=== PATIENT | male | born 1970 | race Caucasian/White ===

== ENCOUNTER 2022-10-23 18:13 | Emergency (ER) | payer OTHER ==
[~2022-10-23] VITALS: Ht 177.8 cm; Wt 99.8 kg
[2022-10-23] MEDS ORDERED: ALBUTEROL SULFATE 2.5 MG/3 ML NEBU NEB ONE (18:45)
[2022-10-23] MEDS ORDERED: OXYCODONE/APAP 5-325 MG TABLET PO ONE (18:45)
[2022-10-23] MEDS ORDERED: IPRATROPIUM BROMIDE 0.5 MG/2.5 ML NEBU NEB ONE (18:45)
[2022-10-23] MEDS ORDERED: OXYCODONE/APAP 5-325 MG TABLET ONE (18:59)
[2022-10-23] MEDS ORDERED: ALBUTEROL SULFATE 2.5 MG/3 ML NEBU ONE (19:01)
[2022-10-23] MEDS ORDERED: IPRATROPIUM BROMIDE 0.5 MG/2.5 ML NEBU ONE (19:01)
[2022-10-23 19:07] LABS: HEMATOCRIT 40.9 % (36.7-47.1); MEAN CORPUSCULAR HEMOGLOBIN 26.9 uug (23.8-33.4); PLATELET COUNT (AUTO) 328 K/uL (152-348)
--- NOTE | 2022-10-23 19:23 | NUR ---
1) EKG in progress and awiat review by MD 2) covid test swab and influenza taken and await results 3) Breathing treatment administered. 4) Percocet administered as prescribed and await effect 5) Oxygen sats as per regime. 6) Vitals: BP 145/80, P92, R20, and Sat 97% 7) Patient clinically stable and conversing with staff, sharing jokes in between, no sign of distress observed.
--- NOTE | 2022-10-23 19:30 | NUR ---
Recieved report from Damon JENKINS.
[2022-10-23 19:45] LABS: CREATININE 1.4 mg/dL (0.6-1.3); POTASSIUM 4.2 mmol/L (3.5-5.1)
--- NOTE | 2022-10-23 21:15 | NUR ---
Patient is resting comfortably in room.
[2022-10-23] MEDS ORDERED: CEFTRIAXONE 1 G in IV DEXTROSE 5% 50 ML IV ONE (22:00)
[2022-10-23] MEDS ORDERED: AZITHROMYCIN 250 MG TABLET PO ONE (22:00)
[2022-10-23] MEDS ORDERED: CEFTRIAXONE /D5W 50ML IVPB **ER PYXIS IV ONE (23:09)
[2022-10-23] MEDS ORDERED: AZITHROMYCIN 250 MG TABLET ONE (23:09)
[2022-10-23] MEDS ORDERED: IV NORMAL SALINE 250 ML IV ONE (23:22)
[2022-10-23] MEDS ORDERED: SWABABLE VALVE TRANSFER SET EA MC ONE (23:22)
[2022-10-23] MEDS ORDERED: IOHEXOL 350 100 ML INFUS..BTL ONE (23:22)
[2022-10-24] MEDS ORDERED: ALBU6.7H9 INH (00:12)
[2022-10-24] MEDS ORDERED: HYDR-3980 PO (00:12)
[2022-10-24] MEDS ORDERED: CEFU500T66 PO (00:12)
[2022-10-24] MEDS ORDERED: AZIT250T13 PO (00:12)
--- NOTE | 2022-10-24 00:28 | NUR ---
Patient discharged to home in stable condition. Written and verbal after care instructions given. Patient verbalizes understanding of instructions. Stressed follow up or return to ER for worsening s/s. Patient walked out with a steady gait.
[2022-10-24 01:02] VITALS: BP 136/89
== END 2022-10-24 00:33 | disposition home or self-care (01) ==
LOC: ER 18:16
DX: J20.9 Acute bronchitis, unspecified (principal); Z20.822 Contact with and (suspected) exposure to COVID-19; R94.31 Abnormal electrocardiogram [ECG] [EKG]; R07.89 Other chest pain; R51.9 Headache, unspecified; R79.1 Abnormal coagulation profile; R91.8 Other nonspecific abnormal finding of lung field
CPT/HCPCS: 99285; 96365; 71275; 71045; 87426; 87804 ×2; 80048; 83880; 85025; 85379; 36415; 93005; 94640; J0696; Q9967; A4663; J3590; Q0144

== ENCOUNTER 2023-01-15 23:22 | Emergency (ER) | payer MEDICAID, OTHER ==
[~2023-01-15] VITALS: Ht 177.8 cm; Wt 99.8 kg
[~2023-01-15 23:22] MED LIST: ALBU6.7H9 INH; AZIT250T13 PO; CEFU500T66 PO; HYDR-3980 PO
--- NOTE | 2023-01-16 00:05 | NUR ---
Dr Paula at bedside MSE in progress
[2023-01-16] MEDS ORDERED: ERYT-135 PO (00:27)
--- NOTE | 2023-01-16 00:30 | NUR ---
Patient discharged to home in stable condition. Written and verbal after care instructions given. Patient verbalizes understanding of instructions. Stressed follow up or return to ER for worsening s/s. Patient is a/ox4, NAD noted, Patient ambulated with steady gait
[2023-01-16 00:36] VITALS: BP 110/61
== END 2023-01-16 00:30 | disposition home or self-care (01) ==
LOC: ER 23:32
DX: H00.021 Hordeolum internum right upper eyelid (principal); Z79.2 Long term (current) use of antibiotics; Z79.899 Other long term (current) drug therapy
CPT/HCPCS: A4663

== ENCOUNTER 2023-03-06 21:21 | Emergency (ER) | payer OTHER ==
[~2023-03-06] VITALS: Ht 177.8 cm; Wt 99.8 kg
[~2023-03-06 21:21] MED LIST changes: +ERYT-135 PO
[2023-03-06] MEDS ORDERED: ONDANSETRON 4 MG/2 ML VIAL IV ONE (22:00)
[2023-03-06] MEDS ORDERED: LORAZEPAM 2 MG/1 ML VIAL IV ONE (22:00)
--- NOTE | 2023-03-06 22:00 | NUR ---
The patient is refusing IV, IV meds, and COVID/FLU swab. ERMD made aware.
[2023-03-06] MEDS ORDERED: LORAZEPAM 0.5 MG TABLET ONE (22:08)
[2023-03-06] MEDS ORDERED: ONDANSETRON ODT 4 MG TAB.RAPDIS ONE ×2 (22:08→22:11)
[2023-03-06] MEDS ORDERED: OXYCODONE/APAP 5-325 MG TABLET ONE (22:12)
[2023-03-06 22:15] LABS: HEMATOCRIT 40.2 % (36.7-47.1); MEAN CORPUSCULAR HEMOGLOBIN 28.7 uug (23.8-33.4); MEAN CORPUSCULAR VOLUME 86.6 fL (73.0-96.2); PLATELET COUNT (AUTO) 253 K/uL (152-348)
[2023-03-06] MEDS ORDERED: ONDANSETRON ODT 4 MG TAB.RAPDIS SL ONE (22:15)
[2023-03-06] MEDS ORDERED: OXYCODONE/APAP 5-325 MG TABLET PO ONE (22:15)
[2023-03-06] MEDS ORDERED: LORAZEPAM 0.5 MG TABLET PO ONE (22:15)
--- NOTE | 2023-03-06 22:20 | NUR ---
XR at bedside for imaging.
[2023-03-06 22:49] LABS: CARBON DIOXIDE 29 mmol/L (21-32); CHLORIDE 102 mmol/L (98-107); CREATININE 1.2 mg/dL (0.6-1.3); POTASSIUM 4.2 mmol/L (3.5-5.1); UREA NITROGEN, BLOOD 12 mg/dL (7-18)
[2023-03-06 23:02] LABS: ALANINE AMINOTRANSFERASE 40 U/L (16-63); ALKALINE PHOSPHATASE 48 U/L (50-136); ASPARTATE AMINOTRANSFERASE 21 U/L (15-37); BILIRUBIN,DIRECT 0.1 mg/dL (0.0-0.2); BILIRUBIN,TOTAL 0.4 mg/dL (0.2-1.0); TOTAL PROTEIN, SERUM 7.4 g/dL (6.4-8.2)
[2023-03-07] MEDS ORDERED: ONDA4TAB5 PO (00:04)
[2023-03-07] MEDS ORDERED: OXYC-133 PO (00:04)
--- NOTE | 2023-03-07 01:00 | NUR ---
Patient discharged to home in stable condition. Written and verbal after care instructions given. Patient verbalizes understanding of instructions. Stressed follow up or return to ER for worsening s/s. Patient ambulated with steady gait. A/Ox4, states that he will not be driving and that his son is picking him up.
[2023-03-07 01:51] VITALS: BP 132/79; O2SAT 99
== END 2023-03-07 01:00 | disposition home or self-care (01) ==
LOC: ER 21:21
DX: F45.9 Somatoform disorder, unspecified (principal); M79.10 Myalgia, unspecified site; R06.6 Hiccough; R05.9 Cough, unspecified; R53.1 Weakness; R07.89 Other chest pain; R11.2 Nausea with vomiting, unspecified; Z79.2 Long term (current) use of antibiotics; Z79.899 Other long term (current) drug therapy
CPT/HCPCS: 36415; 71045; 84484; 85025; 93005; A4663; Q0162

== ENCOUNTER 2024-11-13 20:25 | Emergency (ER) | payer OTHER ==
[~2024-11-13] VITALS: Ht 177.8 cm; Wt 97.5 kg
[~2024-11-13 20:25] MED LIST changes: +ONDA4TAB5 PO; +OXYC-133 PO
[2024-11-14 00:27] VITALS: BP 128/82; TEMP 97.9; O2SAT 97
== END 2024-11-13 23:45 | disposition home or self-care (01) ==
LOC: ER 20:32
DX: H11.32 Conjunctival hemorrhage, left eye (principal); Z79.899 Other long term (current) drug therapy
CPT/HCPCS: A4606; A4663

== ENCOUNTER 2025-04-23 19:30 | Emergency (ER) | payer OTHER ==
[~2025-04-23] VITALS: Ht 177.8 cm; Wt 102.1 kg
[2025-04-23 19:46] VITALS: BP 133/100
[2025-04-23 21:01] VITALS: BP 135/87; O2SAT 98
== END 2025-04-23 20:36 | disposition home or self-care (01) ==
LOC: ER 19:30
DX: S60.221A Contusion of right hand, initial encounter (principal); Z87.39 Personal history of other diseases of the musculoskeletal system and connective tissue; X83.8XXA Intentional self-harm by other specified means, initial encounter; Y93.89 Activity, other specified; Y92.89 Other specified places as the place of occurrence of the external cause; Y99.8 Other external cause status
CPT/HCPCS: 73120; A4606; A4663